=== PATIENT | male | born 1965 | race African-American/Black ===

== ENCOUNTER → 2017-06-12 | Day surgery (SDC) | payer MEDICARE, MEDICAID ==
[~2017-06-12] MED LIST: ALLOPURINOL300 MG PO; AMLODIPINE5 MG PO; LISINOP/HCTZ1 TA1 PO; NAPROXEN500 MG PO; OXYCOD/APAP1 TA4 PO
[2017-06-12 19:58] VITALS: BP 126/60
== END | disposition home or self-care (01) ==
LOC: ORM 07:30
PROVIDERS: ATTEND Orthopaedic Surgery
PROC: 0MBN0ZZ Excision of Right Knee Bursa and Ligament, Open Approach (ICD-10-PCS; principal; 2017-06-12)
DX: M70.41 Prepatellar bursitis, right knee (principal); I10 Essential (primary) hypertension; M10.9 Gout, unspecified; M19.90 Unspecified osteoarthritis, unspecified site